=== PATIENT | female | born 2000 | race Caucasian/White ===

== ENCOUNTER 2022-01-08 09:12 | Emergency (ER) | payer MEDICAID, SELFPAY ==
[2022-01-08 09:25] VITALS: BP 125/66; PULSE 54; RESP 16; TEMP 36.6; O2SAT 99
--- NOTE | 2022-01-08 10:05 | ED.EAR ---
HPI - Ear Problem General Chief complaint: Ear Stated complaint: ear pain Time Seen by Provider: 01/08/22 10:00 Source: patient Mode of arrival: ambulatory Limitations: no limitations History of Present Illness HPI Narrative: 21-year-old female presented for complaint of right ear pain worsening over the past 2 weeks. She endorses sinus congestion and drainage. The pain is intermittent, described as throbbing and radiates down into the right neck. She denies tinnitus, dizziness, nausea, vomiting, fevers or chills. She is taken Tylenol for pain without relief. MD Complaint: ear pain Related Data Home Medications Medication Instructions Recorded Confirmed venlafaxine 150 mg 150 mg PO DAILY 01/08/22 01/08/22 capsule,extended release 24 hr Allergies Allergy/AdvReac Type Severity Reaction Status Date / Time No Known Allergies Allergy Verified 01/08/22 10:06 Review of Systems Review of Systems: CONSTITUTIONAL: Denies malaise, chills, or fever. EYES: Denies visual changes, redness, or discharge. ENT: Denies sinus pain, sore throat. Reports ear pain, rhinorrhea, congestion CARDIOVASCULAR: Denies chest pain, palpitations, or edema. RESPIRATORY: Denies cough or dyspnea. GASTROINTESTINAL: Denies abdominal pain, nausea, vomiting, diarrhea SKIN: Denies rash or itching. MUSCULOSKELETAL: Denies myalgia. NEUROLOGIC: Denies headache. All systems reviewed & are unremarkable except as noted in HPI and below PMFSH Family History Family History Mother Patient's mother is in good health Father Patient's father is in good health Social History Social History Smoking status: Never smoker Alcohol intake: never Comments At time of signature, agree with nursing past medical, surgical, social and family history. There is no relevant family history pertinent to the presenting complaint Exam Narrative: GENERAL: Well-appearing EYES: PERRLA, conjunctivae clear ENT: Nares clear. Mucous membranes moist. Right TM erythematous and bulging, canal erythematous; Left TM pearly dumont with dull light reflex; no tragal tenderness. Oropharynx not erythematous without lesions. NECK: Supple. No lymphadenopathy CHEST: Clear to auscultation, breath sounds equal. No wheezing, rhonchi, rales, or stridor. No respiratory distress, speaks in full sentences. HEART: Regular rate and rhythm. No murmur heard. SKIN: Warm, dry, no rash. NEURO: Alert and oriented x3. PSYCH: Normal mood and affect Course Course Emergency Course: Patient is aware of diagnosis, understands and agrees to treatment plan. Anticipatory guidance given. Patient agrees to follow-up as directed and is aware of reasons to seek care at the emergency department. Portions of this record may have been created with voice recognition software Level of Care: Express Care Visit Vital Signs Vital signs: Vital Signs Temperature 97.9 F 01/08/22 09:25 Pulse Rate 54 L 01/08/22 09:25 Respiratory Rate 16 01/08/22 09:25 Blood Pressure 125/66 01/08/22 09:25 Pulse Oximetry 99 01/08/22 09:25 Oxygen Delivery Room Air 01/08/22 09:25 Temperature 97.9 F 01/08/22 09:25 Pulse Rate 54 L 01/08/22 09:25 Respiratory Rate 16 01/08/22 09:25 Blood Pressure 125/66 01/08/22 09:25 Pulse Oximetry 99 01/08/22 09:25 Oxygen Delivery Room Air 01/08/22 09:25 Reviewed Medical Decision Making MDM Narrative Medical decision making narrative: Advised supportive measures and signs/symptoms to go to the ER. Patient is appropriate for outpatient treatment and follow-up. Differential Diagnosis Differential Diagnosis: Coronavirus, strep pharyngitis, allergic rhinitis, upper respiratory tract infection, sinusitis, rhinosinusitis, nasopharyngitis, viral pharyngitis, otitis media, otitis externa, eustachian tube dysfunction, foreign body, cerumen impaction. V
== END 2022-01-08 10:10 | disposition home or self-care (01) ==
PROVIDERS: Emergency Provider Nurse Practitioner Family; PCP Emergency Medicine
DX: H66.001 Acute suppurative otitis media without spontaneous rupture of ear drum, right ear (principal); F41.9 Anxiety disorder, unspecified; F32.A Depression, unspecified
CPT/HCPCS: 99203; G0463